=== PATIENT | female | born 1950 | race Caucasian/White ===

== ENCOUNTER 2023-09-07 06:14 | Inpatient (IN) ==
--- NOTE | 2023-08-18 12:08 | PAT Medication Instructions ---
Medication Instructions Date of Service August 18, 2023 Home Medications bupropion HCl 150 mg tablet,12 hr sustained-release (Wellbutrin SR) 150 mg PO BID celecoxib 200 mg capsule (Celebrex) 200 mg PO BID montelukast 10 mg tablet 10 mg PO QAM omeprazole 40 mg capsule,delayed release 40 mg PO QAM triamterene 37.5 mg-hydrochlorothiazide 25 mg tablet 1 tab PO TID PRN vit C 250 mg-vit E 90 mg-zinc 40 mg-copper 1 [id number] capsule (PreserVision AREDS-2) 1 tab PO BID gabapentin 300 mg tablet 300 mg PO TID tramadol 50 mg tablet 50 mg PO BID PRN ASK your surgeon for instructions celecoxib 200 mg capsule (Celebrex) 200 mg PO BID STOP taking 2 weeks before surgery (or as soon as possible if surgery is within 2 weeks) vit C 250 mg-vit E 90 mg-zinc 40 mg-copper 1 [id number]-olhoyt capsule (PreserVision AREDS-2) 1 tab PO BID DO NOT take the morning of surgery triamterene 37.5 mg-hydrochlorothiazide 25 mg tablet 1 tab PO TID PRN Take morning of surgery With a small sip of water, OTHERWISE NOTHING TO EAT OR DRINK AFTER MIDNIGHT: bupropion HCl 150 mg tablet,12 hr sustained-release (Wellbutrin SR) 150 mg PO BID montelukast 10 mg tablet 10 mg PO QAM omeprazole 40 mg capsule,delayed release 40 mg PO QAM gabapentin 300 mg tablet 300 mg PO TID tramadol 50 mg tablet 50 mg PO BID PRN(if needed) Take evening before surgery bupropion HCl 150 mg tablet,12 hr sustained-release (Wellbutrin SR) 150 mg PO BID triamterene 37.5 mg-hydrochlorothiazide 25 mg tablet 1 tab PO TID PRN(if needed) gabapentin 300 mg tablet 300 mg PO TID tramadol 50 mg tablet 50 mg PO BID PRN(if needed) Other Notes If you have any questions please call us at [phone] or [phone] or [phone] or [phone]
--- NOTE | 2023-08-24 13:17 | Anesthesiology Consultation ---
Date of Service August 24, 2023 Assessment & Plan (1) Encounter for pre-operative examination: - Infectious disease screening: Per assessment on 08/24/23: No known infectious disease contacts or current infectious disease symptoms. No noted recent Covid positive test result. - PCP ordered preop Echo which was done 08/23/23 (unremarkable). Patient acceptable risk for surgery pending surgeon-ordered PCP clearance ([facility] PAC/JACQUELINE Martell). Chart Review Chart Review: Patient seen in Pre Admission Testing Teaching & Discussion Pre-Anesthesia Teaching/Discussion Notes: Instructed NPO after midnight before surgery,except medications with 15 cc of water. Medication instructions provided according to the PAT guidelines. History Surgery Operation Date: 09/07/23 07:45 Proposed Procedures p L3-L5 Decompression and Fusion, Spinal Cord Monitoring - Pedro Corado DO s L5 Kyphoplasty - Pedro Corado DO Height/Weight Height: 5 ft 1 in Weight: 89.3 kg Allergies Allergy/AdvReac Type Severity Reaction Status Date / Time No Known Allergies Allergy Unverified 08/17/23 09:01 Medications Home Medications Medication Instructions Recorded Confirmed Last Taken bupropion HCl 150 mg tablet,12 hr 150 mg PO BID 03/17/23 08/17/23 03/17/23 sustained-release (Wellbutrin SR) celecoxib 200 mg capsule (Celebrex) 200 mg PO BID 03/17/23 08/17/23 03/17/23 montelukast 10 mg tablet 10 mg PO QAM 03/17/23 08/17/23 03/17/23 omeprazole 40 mg capsule,delayed 40 mg PO QAM 03/17/23 08/17/23 03/17/23 release triamterene 37.5 1 tab PO TID PRN Edema 03/17/23 08/17/23 Unknown mg-hydrochlorothiazide 25 mg tablet vit C 250 mg-vit E 90 mg-zinc 40 1 tab PO BID 03/17/23 08/17/23 03/17/23 mg-copper 1 [id number] capsule (PreserVision AREDS-2) gabapentin 300 mg tablet 300 mg PO TID 08/17/23 08/17/23 Unknown tramadol 50 mg tablet 50 mg PO BID PRN Pain 08/17/23 08/17/23 Unknown Past Medical History Medical History Chronic obstructive pulmonary disease Depression Lumbar compression fracture Lumbar spondylosis Osteoarthritis Prolapsed uterus Spinal stenosis, lumbar region with neurogenic claudication Spondylolisthesis Urine, incontinence, stress female Exercise / Class Metabolic Activity III < 4 Walking/Shop/Light housework Past Surgical History Surgical History History of carpal tunnel release bilateral History of cataract surgery bilateral History of tubal ligation Nausea and vomiting after administration of anesthetic agent Remote hx years ago after tubal ligation, no issues since Past Anesthesia History No Hx of Anesthesia Complications and No Family Hx of Anesthesia Complications History of PONV No Hx of Motion Sickness and History of PONV (Remote hx years ago after tubal ligation, no issues since) Social History Smoking Status: Former smoker Do You Dip or Chew Tobacco: No Smoking End Date: Quit 2019 Hx Alcohol Use: No Hx Substance Use: No substance use type: does not use Review of Systems Patient denies chest pain, shortness of breath, fever, chills, cough, wheezing, palpitations. Physical Exam Vital Signs BP 124/77 P 89 TEMP 98.2 SP02 96%RA RESP 16 Physical Full cervical extension range of motion. Full TMJ range of motion. TMD 3 finger breaths Mallampati Score 3 Dentition: upper partial, lower full denture Lungs: clear throughout to auscultation Cardiac: regular rate and rhythm, no murmurs noted Spine: normal Carotid arteries: negative bruit Extremities: no LE edema Lab Results Anesthesia Preop Results Results Anesthesia Widget: PT 10.1 Seconds (9.0-12.0) 08/24/23 PTT 27 Seconds (21-31) 08/24/23 INR 0.9 (0.9-1.1) 08/24/23 Urine Color Yellow 08/24/23 Urine Appearance Clear (Clear) 08/24/23 Urine pH 5.5 (4.5-7.5) 08/24/23 Urine Specific [place] 1.030 (1.000-1.030) 08/24/23 Urine Protein Negative (Negative) 08/24/23 Urine Glucose (UA) Negative (Negative) 08/24/23 Urine Ketones Negative (Negative) 08/24/23 Urine Blood Negative (Negative) 08/24/23 Urine Nitrite Negative (Negative) 08/24/23 Urine Bilirubin Negative (Negative) 08/24/23 Urine Urobilinogen Negative (Negative) 08/24/23 Urine Leukocyte Esterase 1+ (Negative) H 08/24/23 Urine WBC (Auto) 5-10 /hpf (0-5) H 08/24/23 Urine RBC (Auto) 0-4 /hpf (0-4) 08/24/23 Urine Hyaline Casts (Auto) 1-5 /lpf (0-5) 08/24/23 Urine Epithelial Cells (Auto) >30 /lpf (0-5) H 08/24/23 Urine Bacteria (Auto) Negative (Negative) 08/24/23 Blood Type A Positive 08/24/23 Antibody Screen NEGATIVE 08/24/23 Testing Laboratory Results 08/19/23 WBC 5.84 H/H 13.2/44.4 PLATELETS 292 SODIUM 141 POTASSIUM 4.5 CHLORIDE 104 CO2 30.1 BUN 22.0 CREATININE 1.03 GLUCOSE 107 HGBA1C 5.6% Electrocardiogram Date: 03/17/23 Findings: + NSR @ (84) Chest X-Ray Date: 08/24/23 Findings: + NAD Echocardiogram Date: 08/23/23 EF 60-65%. No RWMA. Mild TR/UT. Trivial pericardial effusion.
[2023-09-07] MEDS ORDERED: PROMETHAZINE HCL 6.25 MG in SODIUM CHLORIDE 0.9% 50 ML IV PRN (07:02)
[2023-09-07] MEDS ORDERED: ATROPINE SULFATE 0.1 MG/ML 10ML SYR IV PRN (07:02)
[2023-09-07] MEDS ORDERED: DEXAMETHASONE SOD INJ 4 MG/ML VIAL ONE (07:06)
[2023-09-07] MEDS ORDERED: ROCURONIUM BROMIDE 10 MG/ML 5 ML VIAL IV ONE (07:06)
[2023-09-07] MEDS ORDERED: ONDANSETRON INJ 2 MG/ML 2 ML VIAL ONE (07:06)
[2023-09-07] MEDS ORDERED: fentaNYL citrate PF 100 MCG/2 ML VIAL ONE (07:06)
[2023-09-07] MEDS ORDERED: MIDAZOLAM HCL 1 MG/ML 2ML VIAL ONE (07:06)
[2023-09-07] MEDS ORDERED: PROPOFOL IV EMULSION 10 MG/ML 20 ML VIAL IV ONE (07:06)
[2023-09-07] MEDS: GABAPENTIN 300 MG CAP PO SCH ×2 (07:22→12:24)
[2023-09-07] MEDS: ACETAMINOPHEN 500 MG TAB PO SCH (07:23)
[2023-09-07] MEDS: LR 15ML/HR IV SCH (07:23)
[2023-09-07] MEDS: CeleBREX 200 MG CAP PO SCH (07:23)
[2023-09-07] MEDS: LR 60ML/HR IV SCH (07:23)
--- NOTE | 2023-09-07 07:34 | History & Physical Bridge Note ---
Date of Service September 07, 2023 History & Physical Bridge Note I have examined the patient, reviewed the History & Physical and in the interval since the performance of the History & Physical I have noted the following changes of clinical significance: no changes noted
--- NOTE | 2023-09-07 07:35 | History & Physical Report ---
Date of Service September 07, 2023 Assessment & Plan (1) Neurogenic claudication due to lumbar spinal stenosis: Plan: L3-L5 decompression and fusion with L5 kyphoplasty History of Present Illness Chief Complaint: Back and leg pain Primary Care Provider: Ani Can PA-C This is a 72-year-old female who presents with worsening back and leg pain Course of nonoperative care she is here for surgical invention. Allergies Allergy/AdvReac Type Severity Reaction Status Date / Time No Known Allergies Allergy Verified 09/07/23 06:51 Home Medications Medication Instructions Recorded Confirmed Type bupropion HCl 150 mg tablet,12 hr 150 mg PO BID 03/17/23 09/07/23 History sustained-release (Wellbutrin SR) celecoxib 200 mg capsule (Celebrex) 200 mg PO BID 03/17/23 09/07/23 History montelukast 10 mg tablet 10 mg PO QAM 03/17/23 09/07/23 History omeprazole 40 mg capsule,delayed 40 mg PO QAM 03/17/23 09/07/23 History release triamterene 37.5 1 tab PO TID PRN Edema 03/17/23 09/07/23 History mg-hydrochlorothiazide 25 mg tablet vit C 250 mg-vit E 90 mg-zinc 40 1 tab PO BID 03/17/23 09/07/23 History mg-copper 1 ew-bqnjjt-bdvhxk capsule (PreserVision AREDS-2) gabapentin 300 mg tablet 300 mg PO TID 08/17/23 09/07/23 History tramadol 50 mg tablet 50 mg PO BID PRN Pain 08/17/23 09/07/23 History Vitamin D3 5,000 tab PO BID 09/07/23 09/07/23 History Past Med/Surg History Medical History Chronic obstructive pulmonary disease Depression Lumbar compression fracture Lumbar spondylosis Osteoarthritis Prolapsed uterus Spinal stenosis, lumbar region with neurogenic claudication Spondylolisthesis Urine, incontinence, stress female Surgical History History of carpal tunnel release bilateral History of cataract surgery bilateral History of tubal ligation Nausea and vomiting after administration of anesthetic agent Remote hx years ago after tubal ligation, no issues since Social History Smoking Status: Former smoker Tobacco Type: Cigarettes Smoking End Date: Quit 2019; Second Hand Exposure: Yes (current); Do You Dip or Chew Tobacco: No; Tobacco Cessation Education Requested by Patient: No Hx Alcohol Use: No Hx Substance Use: No Preferred Language: Khmer Visual Impairment: Limited Clinical Medical Transcriptionist Required: No Beliefs That Will Affect Care: None Current Living Situation: Family Current Living Situation Comment: lives with grandson current occupational status: retired Other Information That Helps Us Care for You: No Feels Safe at Home: Yes Safety Concerns: Feels Safe At This Time Assistive Devices: Denture - Upper, Denture - Lower, Glasses, Walker and Wheelchair Physical Exam Physical Exam: Patient is alert and oriented Heart regular in rhythm Lungs clear
[2023-09-07] MEDS ORDERED: SCOPOLAMINE 1 MG TDSY TD ONE (07:39)
[2023-09-07] MEDS ORDERED: LIDOCAINE 2% 2 ML VIAL/AMP(20MG/ML) INFIL ONE (08:31)
[2023-09-07] MEDS ORDERED: ePHEDrine sulfate 50 MG/5 ML SYR ONE (08:31)
[2023-09-07] MEDS: ceFAZolin 2000MG 2,000 MG/15 ML SYR IV SCH ×2 (08:44→16:59)
[2023-09-07] MEDS: BUPIVACAINE/EPINEPHRINE 0.5% MPF 1:200,000 30 ML VIAL ONE (08:45)
[2023-09-07] MEDS: ceFAZolin 330 MG/ML 1 GM VIAL ONE (08:45)
[2023-09-07] MEDS: FLOSEAL HEMOSTATIC MATRIX 10ML TOP ONE (09:36)
[2023-09-07] MEDS ORDERED: SUGAMMADEX SODIUM 200 MG/2 ML VIAL IV ONE (09:40)
--- NOTE | 2023-09-07 09:56 | Fluoroscopy Report ---
FL lumbar spine 2-3V CLINICAL HISTORY: L3-L5 DECOMPRESSION AND FUSION TECHNIQUE: 2 views were obtained with the C-arm in the OR with the above procedure. Total fluoroscopy time was 134.7 seconds. Radiation dose was 26 mGy. Comparison: Comparison is made to MRI lumbar spine 08/23/2023 FINDINGS/IMPRESSION: Intraoperative images were obtained of L3-L5 decompression and fusion and L3 and L5 kyphoplasty. Please correlate with intraoperative fluoroscopy and operative report. ACT 112: Negative or not required by law. Electronically signed by: Lang Villegas M.D. 09/07/2023 9:55 AM
[2023-09-07] MEDS ORDERED: ALBUTEROL HFA 8 GM INHALER INH ONE (10:00)
--- NOTE | 2023-09-07 10:07 | Operative Report ---
Post Operative Report Pre & Post Diagnosis Operation Date: 09/07/23 07:45 Pre-Op Diagnosis: Spinal Stenosis of Lumbar Region with Neurogenic Claudication Spondylolisthesis L4-L5 Acute compression fracture L3 Post-Op Diagnosis: Same I identified the patient and participated in the time-out.: Yes Procedure Operation Date: 09/07/23 07:45 Actual Procedures #1 lumbar decompression bilateral medial facetectomies and foraminotomies L2-L3, L3-L4 and L4-5 per #2 posterior spinal fusion L3-L5. #3 placed posterior instrumentation L3-L5 #4 interbody fusion L4-L5 #5 placement spiral 12 x 26 mm at L4-5. #6 kyphoplasty of L3 and L5 vertebral bodies. #7 placement of locally harvested morselized autograft and posterior gutters. #8 placement of infuse collagen sponge combined with Koros bone graft in the posterior gutters and course bone graft in the interbody space. Surgeon Pedro Corado, DO Game Bird Farmer None Estimated Blood Loss 50 Findings Consistent with Post-Op Diagnosis Specimens None Indications This is a 72-year-old female presents problems diagnosis) course of nonoperative care is here for surgical invention. Description of Procedure Patient was met with identified informed consent obtained. Patient was then taken to the operative suite underwent patient placed in prone position the [place] table top [place] frame. The bony promises well-padded eyes inspected to ensure no external precipice monitor at this point lumbar spine was prepped and draped in a sterile fashion. Sharp dissection with the assistance bradycardia form down to and exposing the lamina transverse processes of L3 L4-5 bilaterally. From caudal cephalad fashion complete laminectomy of L4 L3 and partial and active L2 was performed including bilaterally facetectomies and foraminotomies addressing severe spinal stenosis. I then created holes in the pedicles of L3 and L5 bilaterally in preparation for pedicle screw placement. Prior to doing so however I placed Kyphon 20 m balloon starting at L3 into the vertebral body sequentially inflated with fluoroscopic visualization. They were subsequently removed and approximately 4 cc of Kyphon cement used and digitate and fill the vertebral body to additionally stabilize the compression fracture. This was followed by placement of pedicle screws and L3. I repeated the procedure at L5 injecting approximately 3 cc of Kyphon cement to interdigitate in the broken fragments followed by placement of the pedicle screws. Pedicle screws were also placed in L4 appropriate size rhina was then contoured and placed bilaterally. By way of transforaminal approach on the left complete discectomy of L4-5 was performed endplates guarded to subcortical mean bone and a 12 x 26 mm spiral cage filled with Koros bone graft apposition. Rods were then compressed locked in final position bilaterally. The transverse processes of L3 L4-5 burred to subcortical bleeding bone. Infuse collagen sponge combined with Koros bone graft and locally harvested morselized graft placed in the posterior gutters. 15 round JUAN inserted. The incision was then closed with 1 Vicryl and fascia 2-0 Vicryl subcutaneously and 4 Monocryl for final closure. Steri-Strips sterile dressings placed. Patient was then taken to PACU in stable condition. Please note spinal cord monitoring was utilized at the procedure no changes noted. I attest to the content of the Intraoperative Record and any orders documented therein. Any exceptions are noted below.
[2023-09-07] MEDS: HYDROmorphone INJ 1 MG/ML SYRINGE IV PRN (10:22)
--- NOTE | 2023-09-07 10:53 | Anesthesiology Progress Note ---
Date of Service September 07, 2023 Anesthesia Post Procedure Vital Signs Vital Signs: Temp Pulse Resp BP Pulse Ox O2 Del Method O2 Flow Rate 09/07/23 10:45 36.4 C L 74 17 145/62 H 95 Room Air 09/07/23 10:35 70 17 128/57 L 100 Oxymask 5 09/07/23 10:25 71 14 126/82 100 Oxymask 5 09/07/23 10:15 70 16 124/76 100 Oxymask 5 09/07/23 10:06 36.3 C L 70 16 138/61 99 Oxymask 5 Transfer of Care Handoff Completed per policy Notes Mental Status: alert / awake / arousable Patient Amnestic to Procedure: Yes Nausea / Vomiting: adequately controlled Pain: adequately controlled Airway Patency, RR, SpO2: stable & adequate BP & HR: stable & adequate Hydration State: stable & adequate Anesthetic Complications: no major complications apparent
[2023-09-07] MEDS ORDERED: diphenhydrAMINE Capsule 25 MG CAP PO PRN (11:13)
[2023-09-07] MEDS ORDERED: LORazepam 0.5 MG in SYRINGE 0.25 ML IV PRN (11:13)
[2023-09-07] MEDS ORDERED: NALOXONE HCL 0.4 MG/1 ML VIAL/CARP IV PRN (11:13)
[2023-09-07] MEDS ORDERED: MAGNESIUM HYDROXIDE SUSP 30 ML UDC PO PRN (11:13)
[2023-09-07] MEDS ORDERED: FAMOTIDINE 20 MG TAB PO PRN (11:13)
[2023-09-07] MEDS ORDERED: DO NOT ADMINISTER FLU VACCINE PRN (11:13)
[2023-09-07] MEDS ORDERED: LORazepam 0.5 MG TAB PO PRN (11:13)
[2023-09-07] MEDS ORDERED: METOCLOPRAMIDE HCL INJ 5 MG/ML 2 ML VIAL IV PRN (11:13)
[2023-09-07] MEDS ORDERED: TRIAMTERENE/HCTZ 37.5/25MG TAB PO PRN (11:13)
[2023-09-07] MEDS ORDERED: HYDROmorphone INJ 0.5 MG/0.5 ML SYR IV PRN (11:13)
[2023-09-07] MEDS ORDERED: bisacodyL 10 MG SUPP PR PRN (11:13)
[2023-09-07] MEDS ORDERED: ACETAMINOPHEN 1,000 MG/100 ML VIAL IV PRN (11:13)
[2023-09-07] MEDS ORDERED: DO NOT ADMINISTER PNEUMOCOCCAL VACCINE PRN (11:13)
[2023-09-07] MEDS ORDERED: PROMETHAZINE HCL 12.5 MG in SODIUM CHLORIDE 0.9% 50 ML IV PRN (11:13)
[2023-09-07] MEDS ORDERED: hydrOXYzine HCl 25 MG TAB PO PRN (11:13)
[2023-09-07] MEDS ORDERED: SOD PHOSPHATE/SOD BIPHOSPHATE ENEMA 132 ML BTL PR PRN (11:13)
[2023-09-07] MEDS ORDERED: ALUMINUM/MAGNESIUM SUSP 30 ML UDC PO PRN (11:13)
[2023-09-07] MEDS ORDERED: ONDANSETRON INJ 2 MG/ML 2 ML VIAL IV PRN (11:13)
[2023-09-07] MEDS: LACTATED RINGER'S 1,000 ML IV SCH (11:20)
--- NOTE | 2023-09-07 12:57 | Consultation ---
Date of Consultation September 07, 2023 Assessment & Plan (1) Neurogenic claudication due to lumbar spinal stenosis: (2) Chronic obstructive pulmonary disease: Plan This is a 72 yr old F who has a significant PMH of COPD, depression and chronic back pain who presents to elective lumbar procedure by Dr. Corado. S/P Lumbar decompression and fusion L3-L5 by Dr. Corado EBL 50ml tolerated procedure well pain/wound management per ortho activity and therapy as prescribed by ortho encourage incentive spirometry and wean off O2 as able COPD no acute exac prn albuterol Depression mood stable, chronic continue Wellbutrin Hx of T2DM most recent a1c 5.5 previously a1c 6.9, required meds and lost 50lbs in setting of surgery and steroid will monitor accuchecks with liberal novolog scale DVT ppx: SCDS FULL CODE PCP: Ani Can PA-C Dispo: per per primary Pt was seen and examined in collaboration with Dr. Phan, please see addendum A total of 45 minutes was spent coordinating, documenting, and providing care for this patient excluding time spent in the performance of separately billed services. This included personally viewing all current laboratories and imaging studies, medication reconciliation, outpatient chart review, and discussion with specialists. Thank you for this consultation. We will follow the patient with you during their hospital stay. You can reach a member of the [facility] Hospitalist Team 24/01 via hospitalist role on tiger text. Supervising Physician Co-Signing Physician Notes I have seen and discussed the case with the collaborating advanced practitioner. I agree with the above H&P. I have reviewed and confirmed the patients medical history, the findings on physical examination, and the patients diagnosis and treatment plan with Marc LEDESMA and agree with the information documented. In short, Ms. Gongora is a a72 year old woman with past medical history of COPD, diet controlled diabetes, depression, and neurogenic claudication now POD 0 lumbar fusion for which Hospital service consulted for medical comanagement. #Neurogenic claudication s/p lumbar fusion 09/07/2023 -POD 0 Pain mgmt per primary Bowel regimen Trend labs, monitor post op hgb and cr IS Rest of plan as above I spent a total of 15 minutes coordinating, documenting, and providing care for this patient excluding time spent in the performance of separately billed services. All of the aforementioned completed outside of collaborating with the assigned advanced practitioner for a full treatment plan. I have reviewed the advanced practitioner's documentation, and I agree with, and take responsibility for the plan of care History of Present Illness Requesting Physician: Dr. Corado Reason for Consultation: post op med management Attending Physician: Pedro Corado, DO History of Present Illness This is a 72 yr old F who has a significant PMH of COPD, depression and chronic back pain who presents to elective lumbar procedure by Dr. Corado. Her PCP Is Ani Can with [facility]. She underwent L3-L5 decompression/fusion by Dr. Corado. She tolerated the procedure well. She is complaining of low back pain with radiation to her b/l lower extremities. This is how her pain was prior to surgery. She does feel a little nausea, but does not want an antiemetic. She denies f/c/s, chest pain, sob, uri sx, vomiting, dizziness, lightheaded, abd pain. She has a silva cath in place. Records were reviewed. Appetite is stable. She has prior hx of T2DM. Her A1c was 6.9. She lost 50lbs and has since put back on 25 lbs due to immobility 2/2 back pain. Her most recent a1c was 5.5. She did take 1 medication for T2DM for 2 months but has since stopped. Allergies Allergy/AdvReac Type Severity Reaction Status Date / Time No Known Allergies Allergy Verified 09/07/23 06:51 Home Medications Medication Instructions Recorded Confirmed Type bupropion HCl 150 mg tablet,12 hr 150 mg PO BID 03/17/23 09/07/23 History sustained-release (Wellbutrin SR) celecoxib 200 mg capsule (Celebrex) 200 mg PO BID 03/17/23 09/07/23 History montelukast 10 mg tablet 10 mg PO QAM 03/17/23 09/07/23 History omeprazole 40 mg capsule,delayed 40 mg PO QAM 03/17/23 09/07/23 History release vit C 250 mg-vit E 90 mg-zinc 40 1 tab PO BID 03/17/23 09/07/23 History mg-copper 1 [id number]-[id number] capsule (PreserVision AREDS-2) gabapentin 300 mg tablet 300 mg PO TID 08/17/23 09/07/23 History tramadol 50 mg tablet 50 mg PO BID PRN Pain 08/17/23 09/07/23 History Vitamin D3 5,000 tab PO BID 09/07/23 09/07/23 History oxycodone 5 mg tablet 5 mg PO Q6H PRN pain #30 tabs 09/07/23 Rx tramadol 50 mg tablet 50 mg PO Q6H PRN pain, moderate 09/07/23 Rx #30 tabs Patient History Medical History (Updated 09/07/23 @ 13:00 by Marcella Tran PA-C) Osteoarthritis Urine, incontinence, stress female Prolapsed uterus Depression Chronic obstructive pulmonary disease Lumbar compression fracture Lumbar spondylosis Spondylolisthesis Spinal stenosis, lumbar region with neurogenic claudication Surgical History Nausea and vomiting after administration of anesthetic agent Remote hx years ago after tubal ligation, no issues since History of carpal tunnel release bilateral History of tubal ligation History of cataract surgery bilateral Social History Smoking Status: Former smoker Tobacco Type: Cigarettes Smoking End Date: Quit 2019; Second Hand Exposure: Yes (current); Do You Dip or Chew Tobacco: No; Tobacco Cessation Education Requested by Patient: No Hx Alcohol Use: No Hx Substance Use: No Preferred Language: Arabic Visual Impairment: Limited Medical Lab Technician Required: No Beliefs That Will Affect Care: None Current Living Situation: Family Current Living Situation Comment: lives with grandson current occupational status: retired Other Information That Helps Us Care for You: No Feels Safe at Home: Yes Safety Concerns: Feels Safe At This Time Assistive Devices: Denture - Upper, Denture - Lower, Glasses, Walker and Wheelchair Review of Systems Review of Systems: All systems reviewed & are unremarkable except as noted in HPI & below Physical Exam Physical Exam: please refer to Dr. Phan addendum for physical addendum Results & Data Vital Signs (Past 12 Hours) Vital Signs Temp Pulse Pulse Resp BP Pulse Ox O2 Del Method 09/07/23 12:08 80 16 114/59 L 95 Nasal Cannula 09/07/23 11:43 77 16 129/70 98 Nasal Cannula 09/07/23 11:17 Nasal Cannula 09/07/23 11:14 36.5 C 75 18 149/72 H 96 Nasal Cannula 09/07/23 10:45 36.4 C L 74 17 145/62 H 95 Room Air 09/07/23 10:35 70 17 128/57 L 100 Oxymask 09/07/23 10:25 71 14 126/82 100 Oxymask 09/07/23 10:15 70 16 124/76 100 Oxymask 09/07/23 10:06 36.3 C L 70 16 138/61 99 Oxymask O2 Flow Rate 09/07/23 12:08 2 09/07/23 11:43 2 09/07/23 11:17 2 09/07/23 11:14 2 09/07/23 10:45 09/07/23 10:35 5 09/07/23 10:25 5 09/07/23 10:15 5 09/07/23 10:06 5 Laboratory Results Preop labs done 03/17/2023 revealed a CBC that is completely unremarkable and completely unremarkable BMP. She had a urinalysis done that was negative as well. Diagnostic Findings Lumbar Spine X-Ray 09/07/23 07:45 FL lumbar spine 2-3V CLINICAL HISTORY: L3-L5 DECOMPRESSION AND FUSION TECHNIQUE: 2 views were obtained with the C-arm in the OR with the above procedure. Total fluoroscopy time was 134.7 seconds. Radiation dose was 26 mGy. Comparison: Comparison is made to MRI lumbar spine 08/23/2023 FINDINGS/IMPRESSION: Intraoperative images were obtained of L3-L5 decompression and fusion and L3 and L5 kyphoplasty. Please correlate with intraoperative fluoroscopy and operative report. ACT 112: Negative or not required by law. Electronically signed by: Lang Villegas M.D. 09/07/2023 9:55 AM Medications Administered Current Inpatient Medications Acetaminophen (Acetaminophen 500 Mg Tab) 1,000 mg PO PREOP ADAM Stop: 09/07/23 18:00 Last Admin: 09/07/23 07:23 Dose: 1,000 mg Acetaminophen (Acetaminophen 500 Mg Tab) 1,000 mg PO Q8H PRN PRN Reason: MILD Pain Scale 1,2,3 & Pre PT Stop: 10/07/23 11:12 Al Hydrox/Mg Hydrox/Simethicone (Aluminum/Magnesium Susp 30 Ml Udc) 30 ml PO Q6H PRN PRN Reason: Dyspepsia Stop: 10/07/23 11:12 Bisacodyl (Bisacodyl 10 Mg Supp) 10 mg MA DAILY PRN PRN Reason: Constipation Stop: 10/07/23 11:12 Bupropion HCl (Bupropion Sr 150 Mg Tabcr) 150 mg PO BID ADAM Stop: 10/07/23 20:59 Celecoxib (Celebrex 200 Mg Cap) 200 mg PO PREOP ADAM Stop: 09/07/23 18:00 Last Admin: 09/07/23 07:26 Dose: Not Given Diphenhydramine HCl (Diphenhydramine Capsule 25 Mg Cap) 25 mg PO Q6H PRN PRN Reason: Allergic Rhinitis/Insomnia Stop: 10/07/23 11:12 Famotidine (Famotidine 20 Mg Tab) 20 mg PO Q12H PRN PRN Reason: Dyspepsia Stop: 10/07/23 11:12 Gabapentin (Gabapentin 300 Mg Cap) 300 mg PO PREOP ADAM Stop: 09/07/23 18:00 Last Admin: 09/07/23 07:22 Dose: 300 mg Gabapentin (Gabapentin 300 Mg Cap) 300 mg PO TID ADAM Stop: 10/07/23 13:59 Last Admin: 09/07/23 12:24 Dose: 300 mg Hydromorphone HCl (Hydromorphone Inj 0.5 Mg/0.5 Ml Syr) 0.5 mg IV Q3H PRN PRN Reason: MODERATE Pain (Scale 4,5,6) & Pre PT Stop: 09/21/23 11:12 Hydromorphone HCl (Hydromorphone Inj 1 Mg/Ml Syringe) 1 mg IV Q3H PRN PRN Reason: SEVERE Pain (Scale 7,8,9,10) Stop: 09/21/23 11:12 Hydroxyzine HCl (Hydroxyzine Hcl 25 Mg Tab) 25 mg PO Q8H PRN PRN Reason: Anxiety Stop: 10/07/23 11:12 Lactated Ringer's (Lr) 1,000 mls @ 60 mls/hr IV .[id number] ADAM Stop: 09/07/23 22:39 Last Admin: 09/07/23 07:23 Dose: Not Given Cefazolin Sodium (Ancef 2000mg) 2,000 mg in 15 mls @ 3.75 mls/min IV PREOP ADAM; Protocol Stop: 09/07/23 18:00 Last Admin: 09/07/23 08:44 Dose: 3.75 mls/min Lactated Ringer's (Lr) 1,000 mls @ 15 mls/hr IV .Q24H ADAM Stop: 09/08/23 05:59 Last Infusion: 09/07/23 07:42 Dose: Infused Lactated Ringer's (Lr) 1,000 mls @ 100 mls/hr IV .Q10H ADAM Stop: 10/07/23 11:12 Last Admin: 09/07/23 11:20 Dose: 100 mls/hr Promethazine HCl 12.5 mg/ (Sodium Chloride) 50.5 mls @ 202 mls/hr IV Q6H PRN PRN Reason: Nausea &/or Vomiting Stop: 10/07/23 11:12 Acetaminophen (Ofirmev) 1,000 mg in 100 mls @ 400 mls/hr IV Q8H PRN PRN Reason: Pain Rating 1-3 & Pre PT Stop: 09/08/23 11:14 Cefazolin Sodium (Ancef 2000mg) 2,000 mg in 15 mls @ 3.75 mls/min IV Q8H ADAM; Protocol Stop: 09/08/23 00:18 Lorazepam 0.5 mg/ Syringe 0.5 mls @ 2 mls/min IV Q8H PRN; Protocol PRN Reason: Sedation/Anxiety Stop: 10/07/23 11:12 Dexamethasone 6 mg/ Syringe 1.5 mls @ 1 mls/min IV DAILY [facility] Stop: 09/10/23 09:02 Influenza Virus Vaccine Quadrival (Do Not Administer Flu Vaccine) 1 each N/A PRN PRN PRN Reason: Notification Stop: 10/07/23 11:12 Lorazepam (Lorazepam 0.5 Mg Tab) 0.5 mg PO Q8H PRN PRN Reason: Sedation/Anxiety Stop: 10/07/23 11:12 Magnesium Hydroxide (Magnesium Hydroxide Susp 30 Ml Udc) 30 ml PO Q24H PRN PRN Reason: Constipation Stop: 10/07/23 11:12 Metoclopramide HCl (Metoclopramide Hcl Inj 5 Mg/Ml 2 Ml Vial) 10 mg IV Q6H PRN PRN Reason: Nausea &/or Vomiting Stop: 10/07/23 11:12 Montelukast Sodium (Montelukast Sodium 10 Mg Tablet) 10 mg PO QAM [facility] Stop: 10/08/23 08:59 Multivitamins/Minerals (Cerovite Adv Formula Tab) 1 tab PO DAILY [facility] Stop: 10/08/23 08:59 Naloxone HCl (Naloxone Hcl 0.4 Mg/1 Ml Vial/Carp) 0.1 mg IV Q5M PRN PRN Reason: Oversedation/Resp depression Stop: 10/07/23 11:12 Ondansetron HCl (Ondansetron Inj 2 Mg/Ml 2 Ml Vial) 4 mg IV Q6H PRN PRN Reason: Nausea &/or Vomiting Stop: 10/07/23 11:12 Ondansetron HCl (Ondansetron 4 Mg Od Tab) 4 mg PO Q6H PRN PRN Reason: Nausea Stop: 10/07/23 11:12 Oxycodone HCl (Oxycodone Hcl Ir 5 Mg Tab (Immediate Release)) 5 - 10 mg PO Q4H PRN PRN Reason: Pain & Pre PT Stop: 09/21/23 11:12 Pantoprazole Sodium (Pantoprazole 40 Mg Tab) 40 mg PO QAM [facility] Stop: 10/08/23 08:59 Pneumococcal Polyvalent Vaccine (Do Not Administer Pneumococcal Vaccine) 1 each N/A PRN PRN PRN Reason: Notification Stop: 10/07/23 11:12 Polyethylene Glycol (Polyethylene (Miralax) 17 Gm Pack) 17 gm PO Q6 [facility] Stop: 10/08/23 05:59 Senna/Docusate Sodium (Docusate Sodium/Senna 50/8.6mg Tab) 2 tab PO HS [facility] Stop: 10/07/23 20:59 Sodium Biphosphate/Sodium Phosphate (Sod Phosphate/Sod Biphosphate Enema 132 Ml Btl) 132 ml MA ONE PRN PRN Reason: Constipation Stop: 10/07/23 11:12 Tramadol HCl (Tramadol Hcl 50 Mg Tablet) 50 - 100 mg PO Q4H PRN PRN Reason: Moderate-Severe pain & Pre PT Stop: 10/07/23 11:12 Triamterene/Hydrochlorothiazide (Triamterene/Hctz 37.5/25mg Tab) 1 tab PO TID PRN PRN Reason: Edema Stop: 10/07/23 11:12 Vitamin D (Cholecalciferol 125 Mcg (5,000 Units) Tab) 125 mcg PO BID [facility] Stop: 10/07/23 20:59 ECG Additional Comments: EKG was visually reviewed and interpreted by myself. Revealed normal sinus rhythm with ventricular of [address] or T wave changes. T wave inversion noted in lead III.
[2023-09-07] MEDS ORDERED: DEXTROSE 50% 50 ML SYRINGE IV PRN (14:01)
[2023-09-07] MEDS ORDERED: GLUCAGON FOR INJ 1 MG VIAL SQ PRN (14:01)
[2023-09-07] MEDS ORDERED: GLUCOSE 40% GEL 15 GM TUBE PO PRN (14:01)
[2023-09-07] MEDS ORDERED: GLUCOSE 10 TAB/TUBE PO PRN (14:01)
[2023-09-07] MEDS ORDERED: CARBOHYDRATES FOR HYPOGLYCEMIA PO PRN (14:01)
[2023-09-07] MEDS: traMADol HCL 50 MG TABLET PO PRN (14:24)
[2023-09-07] MEDS: INSULIN ASPART PER UNIT CHARGE SC SCH (17:00)
[2023-09-07] MEDS: ACETAMINOPHEN 500 MG TAB PO PRN (18:14)
[2023-09-07] MEDS: DOCUSATE SODIUM/SENNA 50/8.6MG TAB PO SCH (21:40)
[2023-09-07] MEDS: oxyCODONE HCL IR 5 MG TAB (IMMEDIATE RELEASE) PO PRN (21:40)
[2023-09-07] MEDS: buPROPion SR 150 MG TABCR PO SCH (21:41)
[2023-09-07] MEDS: CHOLECALCIFEROL 125 MCG (5,000 UNITS) TAB PO SCH (21:45)
[2023-09-08] MEDS: POLYETHYLENE (MIRALAX) 17 GM PACK PO SCH (05:58)
[2023-09-08 07:38] LABS: Basophils # (auto) 0.02 K/uL (0.00-0.20); Basophils % (auto) 0.2 %; Eosinophils # (auto) 0.02 K/uL (0.00-0.50); Eosinophils % (auto) 0.2 %; Hematocrit (blood only) 33.9 % (37.0-47.0); Hemoglobin 10.5 g/dl (12.0-16.0); Immature Granulocytes # (auto) 0.07 K/uL (0.01-0.20); Immature Granulocytes % (auto) 0.6 %; Lymphocytes # (auto) 1.81 K/uL (1.20-3.40); Lymphocytes % (auto) 16.3 %; Mean Corpuscular Hemoglobin 29.7 pg (25.0-34.0); Mean Corpuscular Volume 95.8 fL (80.0-100.0); Mean Platelet Volume 9.4 fL (9.4-12.4); Monocytes # (auto) 1.05 K/uL (0.11-0.59); Monocytes % (auto) 9.5 %; Neutrophils # (auto) 8.13 K/uL (1.40-6.50); Neutrophils % (auto) 73.2 %; Platelet Count 229 K/uL (130-400); RDW Coefficient of Variation 13.2 % (11.5-14.5); RDW Standard Deviation 46.3 fL (36.4-46.3); Red Blood Count 3.54 M/uL (4.20-5.40)
[2023-09-08] MEDS: dexAMETHasone 6 MG in SYRINGE 0 ML IV SCH (07:58)
[2023-09-08] MEDS: PANTOprazole 40 MG TAB PO SCH (07:59)
[2023-09-08] MEDS: CEROVITE ADV FORMULA TAB PO SCH (07:59)
[2023-09-08] MEDS: MONTELUKAST SODIUM 10 MG TABLET PO SCH (07:59)
[2023-09-08 08:02] LABS: BUN Creatinine Ratio 22.6 (10-20); Calcium 8.9 mg/dl (8.6-10.3); Creatinine Clr Calc Pharmacy 49.5 ml/min; Est GFR (African American) 71.7 ml/min; Est GFR (Non-African American) 61.8 ml/min; Potassium 4.3 mmol/L (3.5-5.1)
--- NOTE | 2023-09-08 08:27 | Orthopedic Progress Note ---
Date of Service September 08, 2023 Assessment & Plan (1) Neurogenic claudication due to lumbar spinal stenosis: Plan: At this time continue physical therapy monitor JUAN output and anticipate discharge in the next few days. We will await final placement pending her pr ogress with PT and OT. Admission and Anticipated Discharge Date Admission Date: September 07, 2023 Subjective Back pain is controlled leg pain improved Physical Exam Physical Exam: Patient is currently in bed. She is comfortable. Is consented testing. Results & Data Vital Signs (Past 12 Hours) Vital Signs Temp Pulse Resp BP Pulse Ox O2 Del Method 09/08/23 07:02 36.5 C 74 16 127/63 96 Room Air 09/08/23 02:35 36.9 C 80 16 128/72 94 Room Air 09/07/23 22:52 36.8 C 82 16 96/58 L 94 Room Air Queries Orthopedic Spine Cauda Equina Syndrome: Yes
[2023-09-08 08:46] LABS: Estimated Average Glucose 117 mg/dl; Hemoglobin A1C 5.7 % (4.5-5.6)
--- NOTE | 2023-09-08 14:53 | Hospitalist Progress Note ---
Date of Service September 08, 2023 Assessment & Plan (1) Neurogenic claudication due to lumbar spinal stenosis: (2) Chronic obstructive pulmonary disease: Plan This is a 72 yr old F who has a significant PMH of COPD, depression and chronic back pain who presents to elective lumbar procedure by Dr. Corado. S/P Lumbar decompression and fusion L3-L5 by Dr. Corado 09/07/23. EBL 50ml tolerated procedure well pain/wound management per ortho activity and therapy as prescribed by ortho encourage incentive spirometry and wean off O2 as able Acute blood loss anemia: likely post operative and dilutional related anemia. Preop Hb 12.9; post op 10.5; monitor HnH. currently pt stable. labs in AM. COPD no acute exac prn albuterol Depression mood stable, chronic continue Wellbutrin Hx of T2DM most recent a1c 5.5 previously a1c 6.9, required meds and lost 50lbs in setting of surgery and steroid will monitor accuchecks with liberal novolog scale DVT ppx: SCDS FULL CODE PCP: Ani Can PA-C Dispo: per per primary Thank you for this consultation. We will follow the patient with you during their hospital stay. You can reach a member of the [facility] Hospitalist Team 24/01 via hospitalist role on tiger text. Admission and Anticipated Discharge Date Admission Date: September 07, 2023 Subjective Patient was seen and examined at bedside. Patient was sitting up in chair, on room air, resting comfortably. Patient reports improvement in her low back pain, she is yet to appreciate improvement in her BLE extremity. Patient denies any febrile illness/headache/dizziness/chest pain. Physical Exam Physical Exam: GENERAL: Alert and oriented x3. NAD, on RA. HEENT: No pallor, no icterus. Pupils equal, round and reactive to light. Oral mucosa moist. NECK: No JVD, no neck masses. HEART: S1 and S2 heard. Regular rate and rhythm. No murmur, no gallop. RESPIRATORY SYSTEM: Normal AP diameter. No accessory muscle use. No wheezing, no crackles. ABDOMEN: Soft, bowel sounds present, nontender, no distention. CENTRAL NERVOUS SYSTEM: No facial droop. Speech is clear. Obeys simple commands. Moves extremities. EXTREMITIES: No edema, no erythema seen. Lower back with clean dressing without soakage. JUAN drain with moderate serosanguineous collection noted. Urinary catheter with light yellow urine collection noted. Results & Data Results & Data Vital Signs (Past 12 Hours) Vital Signs Temp Pulse Resp BP Pulse Ox O2 Del Method 09/08/23 14:31 36.6 C 104 H 16 129/66 95 Room Air 09/08/23 11:14 36.6 C 96 H 16 112/67 94 Room Air 09/08/23 07:02 36.5 C 74 16 127/63 96 Room Air
[2023-09-09 07:56] LABS: Hematocrit (blood only) 34.6 % (37.0-47.0); Hemoglobin 10.7 g/dl (12.0-16.0); Mean Corpuscular Hemoglobin 30.1 pg (25.0-34.0); Mean Corpuscular Hgb Conc 30.9 g/dL (32.0-36.0); Mean Corpuscular Volume 97.5 fL (80.0-100.0); Mean Platelet Volume 9.9 fL (9.4-12.4); Platelet Count 248 K/uL (130-400); RDW Coefficient of Variation 13.2 % (11.5-14.5); RDW Standard Deviation 47.8 fL (36.4-46.3); Red Blood Count 3.55 M/uL (4.20-5.40); White Blood Count 11.76 K/ul (4.8-10.8)
[2023-09-09 08:11] LABS: BUN Creatinine Ratio 25.3 (10-20); Creatinine Clr Calc Pharmacy 50.6 ml/min; Est GFR (African American) 73.6 ml/min; Est GFR (Non-African American) 63.5 ml/min; Magnesium 1.9 mg/dl (1.7-2.4); Phosphorus 3.2 mg/dl (2.5-4.9); Potassium 4.3 mmol/L (3.5-5.1)
--- NOTE | 2023-09-09 10:22 | Orthopedic Progress Note ---
Date of Service September 09, 2023 Assessment & Plan (1) Neurogenic claudication due to lumbar spinal stenosis: Plan: At this time continue physical therapy occupational therapy monitor JUAN output and can consider rehab versus home placement. Admission and Anticipated Discharge Date Admission Date: September 07, 2023 Subjective Back pain controlled leg pain improved Physical Exam Physical Exam: Pain in the chair at the bedside. She is comfortable. Discussed when to testing. She Results & Data Vital Signs (Past 12 Hours) Vital Signs Temp Pulse Resp BP Pulse Ox O2 Del Method 09/09/23 07:52 36.9 C 86 16 118/58 L 98 Room Air Queries Orthopedic Spine Cauda Equina Syndrome: Yes
--- NOTE | 2023-09-09 16:31 | Hospitalist Progress Note ---
Date of Service September 09, 2023 Assessment & Plan (1) Neurogenic claudication due to lumbar spinal stenosis: (2) Chronic obstructive pulmonary disease: Plan This is a 72 yr old F who has a significant PMH of COPD, depression and chronic back pain who presents to elective lumbar procedure by Dr. Corado. S/P Lumbar decompression and fusion L3-L5 by Dr. Corado 09/07/23. EBL 50ml tolerated procedure well pain/wound management per ortho activity and therapy as prescribed by ortho encourage incentive spirometry and wean off O2 as able Acute blood loss anemia: likely post operative and dilutional related anemia. Preop Hb 12.9; post op 10.5; monitor HnH prn. currently pt stable. l COPD no acute exac prn albuterol Depression mood stable, chronic continue Wellbutrin Hx of T2DM most recent a1c 5.5 previously a1c 6.9, required meds and lost 50lbs in setting of surgery and steroid will monitor accuchecks with liberal novolog scale DVT ppx: SCDS FULL CODE PCP: Ani Can PA-C Dispo: per per primary Thank you for this consultation. We will follow the patient with you during their hospital stay. You can reach a member of the [facility] Hospitalist Team 24/01 via hospitalist role on tiger text. Admission and Anticipated Discharge Date Admission Date: September 07, 2023 Subjective Patient was seen and examined at bedside. Patient was sitting up in chair, on room air, resting comfortably. Patient reports improvement in her low back pain, some improvement in her BLE extremity. Patient denies any febrile illness/headache/dizziness/chest pain. Physical Exam Physical Exam: GENERAL: Alert and oriented x3. NAD, on RA. HEENT: No pallor, no icterus. Pupils equal, round and reactive to light. Oral mucosa moist. NECK: No JVD, no neck masses. HEART: S1 and S2 heard. Regular rate and rhythm. No murmur, no gallop. RESPIRATORY SYSTEM: Normal AP diameter. No accessory muscle use. No wheezing, no crackles. ABDOMEN: Soft, bowel sounds present, nontender, no distention. CENTRAL NERVOUS SYSTEM: No facial droop. Speech is clear. Obeys simple commands. Moves extremities. EXTREMITIES: No edema, no erythema seen. Lower back with clean dressing without soakage. JUAN drain with minimal serosanguineous collection noted. Urinary catheter with light yellow urine collection noted. Results & Data Results & Data Vital Signs (Past 12 Hours) Vital Signs Temp Pulse Pulse Resp BP Pulse Ox O2 Del Method 09/09/23 15:44 36.6 C 89 16 98/62 L 94 Room Air 09/09/23 12:36 97 09/09/23 12:00 37.3 C 110 H 16 118/58 L 98 Room Air 09/09/23 07:52 36.9 C 86 16 118/58 L 98 Room Air
[2023-09-10] MEDS: HYDROmorphone INJ 1 MG/ML SYRINGE IV PRN (09:42)
--- NOTE | 2023-09-10 10:19 | Orthopedic Progress Note ---
Date of Service September 10, 2023 Assessment & Plan (1) Neurogenic claudication due to lumbar spinal stenosis: Plan: At this time continue physical therapy will discontinue her drain and change dressing today. Plan for rehab on Tuesday. Admission and Anticipated Discharge Date Admission Date: September 07, 2023 Subjective Patient's back pain is controlled but she is still limited with ambulation. Bowels are working well. No leg pain. Physical Exam Physical Exam: On exam patient is currently bed. She is neurologic intact. Results & Data Vital Signs (Past 12 Hours) Vital Signs Temp Pulse Resp BP Pulse Ox O2 Del Method 09/10/23 06:42 37.0 C 79 16 116/67 96 Room Air Queries Orthopedic Spine Cauda Equina Syndrome: Yes
--- NOTE | 2023-09-10 16:24 | Hospitalist Progress Note ---
Date of Service September 10, 2023 Assessment & Plan (1) Neurogenic claudication due to lumbar spinal stenosis: (2) Chronic obstructive pulmonary disease: Plan This is a 72 yr old F who has a significant PMH of COPD, depression and chronic back pain who presents to elective lumbar procedure by Dr. Corado. S/P Lumbar decompression and fusion L3-L5 by Dr. Corado 09/07/23. EBL 50ml tolerated procedure well pain/wound management per ortho activity and therapy as prescribed by ortho encourage incentive spirometry and wean off O2 as able Acute blood loss anemia: likely post operative and dilutional related anemia. Preop Hb 12.9; post op 10.5; monitor HnH prn. currently pt stable. COPD no acute exac prn albuterol Depression mood stable, chronic continue Wellbutrin Hx of T2DM most recent a1c 5.5 previously a1c 6.9, required meds and lost 50lbs in setting of surgery and steroid will monitor accuchecks with liberal novolog scale DVT ppx: SCDS FULL CODE PCP: Ani Can PA-C Dispo: per per primary Thank you for this consultation. We will follow the patient with you during their hospital stay. You can reach a member of the [facility] Hospitalist Team 24/01 via hospitalist role on tiger text. Admission and Anticipated Discharge Date Admission Date: September 07, 2023 Subjective Patient was seen and examined at bedside. Patient was lying in bed, on room air, resting comfortably. Patient reports improvement in her low back pain, some improvement in her BLE extremity. Patient denies any febrile illness/headache/dizziness/chest pain. Is moving bowels ok now. Physical Exam Physical Exam: GENERAL: Alert and oriented x3. NAD, on RA. HEENT: No pallor, no icterus. Pupils equal, round and reactive to light. Oral mucosa moist. NECK: No JVD, no neck masses. HEART: S1 and S2 heard. Regular rate and rhythm. No murmur, no gallop. RESPIRATORY SYSTEM: Normal AP diameter. No accessory muscle use. No wheezing, no crackles. ABDOMEN: Soft, bowel sounds present, nontender, no distention. CENTRAL NERVOUS SYSTEM: No facial droop. Speech is clear. Obeys simple commands. Moves extremities. EXTREMITIES: No edema, no erythema seen. Lower back with clean dressing without soakage. JUAN drain with minimal serosanguineous collection noted. Urinary catheter with light yellow urine collection noted. Results & Data Results & Data Vital Signs (Past 12 Hours) Vital Signs Temp Pulse Resp BP Pulse Ox O2 Del Method 09/10/23 15:13 37 C 105 H 18 147/72 H 96 Room Air 09/10/23 06:42 37.0 C 79 16 116/67 96 Room Air
--- NOTE | 2023-09-11 11:10 | Orthopedic Progress Note ---
Date of Service September 11, 2023 Assessment & Plan (1) Neurogenic claudication due to lumbar spinal stenosis: Plan: Patient is improving appropriately. We are hoping for possible rehab placement as soon as Tuesday. Admission and Anticipated Discharge Date Admission Date: September 07, 2023 Subjective Back pain controlled leg pain improved Physical Exam Physical Exam: Patient is in the chair at the bedside. She appears comfortable. She is consented testing. Results & Data Vital Signs (Past 12 Hours) Vital Signs Temp Pulse Resp BP Pulse Ox O2 Del Method 09/11/23 07:54 36.8 C 83 18 107/67 95 Room Air Queries Orthopedic Spine Cauda Equina Syndrome: Yes
--- NOTE | 2023-09-11 16:07 | Hospitalist Progress Note ---
Date of Service September 11, 2023 Assessment & Plan (1) Neurogenic claudication due to lumbar spinal stenosis: (2) Chronic obstructive pulmonary disease: Plan This is a 72 yr old F who has a significant PMH of COPD, depression and chronic back pain who presents to elective lumbar procedure by Dr. Corado. S/P Lumbar decompression and fusion L3-L5 by Dr. Corado 09/07/23. EBL 50ml tolerated procedure well pain/wound management per ortho activity and therapy as prescribed by ortho encourage incentive spirometry and wean off O2 as able Acute blood loss anemia: likely post operative and dilutional related anemia. Preop Hb 12.9; post op 10.5; monitor HnH prn. currently pt stable. COPD no acute exac prn albuterol Depression mood stable, chronic continue Wellbutrin Hx of T2DM most recent a1c 5.5 previously a1c 6.9, required meds and lost 50lbs in setting of surgery and steroid will monitor accuchecks with liberal novolog scale DVT ppx: SCDS FULL CODE PCP: Ani Can PA-C Dispo: per per primary Thank you for this consultation. We will follow the patient with you during their hospital stay. You can reach a member of the [facility] Hospitalist Team 24/01 via hospitalist role on tiger text. Admission and Anticipated Discharge Date Admission Date: September 07, 2023 Subjective Patient was seen and examined at bedside. Patient was lying in bed, on room air, resting comfortably. Patient reports improvement in her low back pain, some improvement in her BLE extremity. Patient denies any febrile illness/headache/dizziness/chest pain. Is moving bowels ok. Physical Exam Physical Exam: GENERAL: Alert and oriented x3. NAD, on RA. HEENT: No pallor, no icterus. Pupils equal, round and reactive to light. Oral mucosa moist. NECK: No JVD, no neck masses. HEART: S1 and S2 heard. Regular rate and rhythm. No murmur, no gallop. RESPIRATORY SYSTEM: Normal AP diameter. No accessory muscle use. No wheezing, no crackles. ABDOMEN: Soft, bowel sounds present, nontender, no distention. CENTRAL NERVOUS SYSTEM: No facial droop. Speech is clear. Obeys simple commands. Moves extremities. EXTREMITIES: No edema, no erythema seen. Lower back with clean dressing without soakage. JUAN drain with minimal serosanguineous collection noted. Urinary catheter with light yellow urine collection noted. Results & Data Results & Data Vital Signs (Past 12 Hours) Vital Signs Temp Pulse Resp BP BP Pulse Ox O2 Del Method 09/11/23 15:58 37 C 93 H 18 115/66 96 Room Air 09/11/23 07:54 36.8 C 83 18 107/67 95 Room Air
[2023-09-11] MEDS: ONDANSETRON 4 MG OD TAB PO PRN (21:05)
--- NOTE | 2023-09-12 12:26 | Orthopedic Progress Note ---
Date of Service September 12, 2023 Assessment & Plan (1) Spinal stenosis, lumbar region with neurogenic claudication: Plan: At this time continue physical therapy anticipate discharge to rehab possibly today. Admission and Anticipated Discharge Date Admission Date: September 07, 2023 Subjective Patient's back pain is controlled leg pain improved Physical Exam Physical Exam: Patient is currently in bed. She is comfortable. Distracted testing. Results & Data Vital Signs (Past 12 Hours) Vital Signs Temp Pulse Resp BP Pulse Ox O2 Del Method 09/12/23 11:39 37.0 C 88 16 120/58 L 96 Room Air 09/12/23 07:41 36.6 C 94 H 14 100/58 L 97 Room Air Queries Orthopedic Spine Cauda Equina Syndrome: Yes
--- NOTE | 2023-09-12 15:44 | Hospitalist Progress Note ---
Date of Service September 12, 2023 Assessment & Plan (1) Neurogenic claudication due to lumbar spinal stenosis: (2) Chronic obstructive pulmonary disease: Plan This is a 72 yr old F who has a significant PMH of COPD, depression and chronic back pain who presents to elective lumbar procedure by Dr. Corado. S/P Lumbar decompression and fusion L3-L5 by Dr. Corado 09/07/23. EBL 50ml tolerated procedure well pain/wound management per ortho activity and therapy as prescribed by ortho encourage incentive spirometry and wean off O2 as able Acute blood loss anemia: likely post operative and dilutional related anemia. Preop Hb 12.9; post op 10.5; monitor HnH prn. currently pt stable. COPD no acute exac prn albuterol Depression mood stable, chronic continue Wellbutrin Hx of T2DM most recent a1c 5.5 previously a1c 6.9, required meds and lost 50lbs in setting of surgery and steroid will monitor accuchecks with liberal novolog scale DVT ppx: SCDS FULL CODE PCP: Ani Can PA-C Dispo: per primary Thank you for this consultation. We will follow the patient with you during their hospital stay. You can reach a member of the [facility] Hospitalist Team 24/01 via hospitalist role on tiger text. Admission and Anticipated Discharge Date Admission Date: September 07, 2023 Subjective Patient was seen and examined at bedside. Patient was lying in bed, on room air, resting comfortably. Patient reports some increase in her operative site pain, but continued improvement in her BLE extremity. Patient denies any febrile illness/headache/dizziness/chest pain. Is moving bowels ok. Physical Exam Physical Exam: GENERAL: Alert and oriented x3. NAD, on RA. HEENT: No pallor, no icterus. Pupils equal, round and reactive to light. Oral mucosa moist. NECK: No JVD, no neck masses. HEART: S1 and S2 heard. Regular rate and rhythm. No murmur, no gallop. RESPIRATORY SYSTEM: Normal AP diameter. No accessory muscle use. No wheezing, no crackles. ABDOMEN: Soft, bowel sounds present, nontender, no distention. CENTRAL NERVOUS SYSTEM: No facial droop. Speech is clear. Obeys simple commands. Moves extremities. EXTREMITIES: No edema, no erythema seen. Lower back with clean dressing without soakage. JUAN drain with minimal serosanguineous collection noted. Urinary catheter with light yellow urine collection noted. Results & Data Results & Data Vital Signs (Past 12 Hours) Vital Signs Temp Pulse Pulse Resp BP BP Pulse Ox 09/12/23 14:39 36.9 C 80 16 108/65 97 09/12/23 11:39 37.0 C 88 16 120/58 L 96 09/12/23 07:41 36.6 C 94 H 14 100/58 L 97 O2 Del Method 09/12/23 14:39 Room Air 09/12/23 11:39 Room Air 09/12/23 07:41 Room Air
--- NOTE | 2023-09-13 13:19 | Hospitalist Progress Note ---
Date of Service September 13, 2023 Assessment & Plan (1) Neurogenic claudication due to lumbar spinal stenosis: (2) Chronic obstructive pulmonary disease: Plan This is a 72 yr old F who has a significant PMH of COPD, depression and chronic back pain who presents to elective lumbar procedure by Dr. Corado. S/P Lumbar decompression and fusion L3-L5 by Dr. Corado 09/07/23. EBL 50ml tolerated procedure well pain/wound management per ortho activity and therapy as prescribed by ortho encourage incentive spirometry and wean off O2 as able Acute blood loss anemia: likely post operative and dilutional related anemia. Preop Hb 12.9; post op 10.5; monitor HnH prn. currently pt stable. COPD no acute exac prn albuterol Depression mood stable, chronic continue Wellbutrin Hx of T2DM most recent a1c 5.5 previously a1c 6.9, required meds and lost 50lbs in setting of surgery and steroid will monitor accuchecks with liberal novolog scale DVT ppx: SCDS FULL CODE PCP: Ani Can PA-C Dispo: per primary Thank you for this consultation. We will follow the patient with you during their hospital stay. You can reach a member of the [facility] Hospitalist Team 24/01 via hospitalist role on tiger text. Admission and Anticipated Discharge Date Admission Date: September 07, 2023 Subjective Patient was seen and examined at bedside. Patient was lying in bed, on room air, resting comfortably. Patient reports some pain in her operative site, but continued improvement in her BLE extremity. Patient denies any febrile illness/headache/dizziness/chest pain. Is moving bowels ok. Physical Exam Physical Exam: GENERAL: Alert and oriented x3. NAD, on RA. HEENT: No pallor, no icterus. Pupils equal, round and reactive to light. Oral mucosa moist. NECK: No JVD, no neck masses. HEART: S1 and S2 heard. Regular rate and rhythm. No murmur, no gallop. RESPIRATORY SYSTEM: Normal AP diameter. No accessory muscle use. No wheezing, no crackles. ABDOMEN: Soft, bowel sounds present, nontender, no distention. CENTRAL NERVOUS SYSTEM: No facial droop. Speech is clear. Obeys simple commands. Moves extremities. EXTREMITIES: No edema, no erythema seen. Lower back with clean dressing without soakage. Urinary catheter with light yellow urine collection noted. Results & Data Results & Data Vital Signs (Past 12 Hours) Vital Signs Temp Pulse Resp BP Pulse Ox O2 Del Method 09/13/23 07:37 36.8 C 70 16 107/63 93 Room Air
[2023-09-14 07:58] VITALS: RESP 16
--- NOTE | 2023-09-14 10:26 | Orthopedic Progress Note ---
Date of Service September 14, 2023 Assessment & Plan (1) Neurogenic claudication due to lumbar spinal stenosis: Plan: Stable for discharge, awaiting insurance auth. Continue physical therapy. Continue pain control Admission and Anticipated Discharge Date Admission Date: September 07, 2023 Subjective Cris is POD 7 s/p PSF L3-5. She has Right buttock pin that is positional. + BM yesterday. Yesterday in physical therapy for was able to ambulate 15-20' x3. Still awaiting authorization for rehab upon discharge Review of Systems Review of Systems: All systems reviewed & are unremarkable except as noted in HPI & below Physical Exam Physical Exam: sitting in a chair in NAD lumbar dressing C/D/I strength unchanged B/L lower extremeties Results & Data Vital Signs (Past 12 Hours) Vital Signs Temp Pulse Resp BP Pulse Ox O2 Del Method 09/14/23 07:57 36.9 C 67 16 105/67 93 Room Air 09/13/23 23:34 37.0 C 81 17 112/63 95 Room Air Queries Orthopedic Spine Cauda Equina Syndrome: Yes
--- NOTE | 2023-09-14 13:17 | Hospitalist Progress Note ---
Date of Service September 14, 2023 Assessment & Plan (1) Neurogenic claudication due to lumbar spinal stenosis: (2) Chronic obstructive pulmonary disease: Plan 72 yr old F who has a significant PMH of COPD, depression and chronic back pain who presents to elective lumbar procedure by Dr. Corado. S/P Lumbar decompression and fusion L3-L5 by Dr. Corado 09/07/23. EBL 50ml Tolerated procedure well Pain/wound management per ortho Activity and therapy as prescribed by ortho Awaiting rehab placement Acute blood loss anemia: Likely post operative and dilutional related anemia. Preop Hb 12.9; post op 10.5 Stable COPD No acute exac Prn albuterol Depression Mood stable, chronic Continue Wellbutrin Hx of T2DM Most recent Hba1c 5.5 Previously a1c 6.9, required meds and lost 50lbs Optimal glycemic control inpatient DVT ppx: SCDS FULL CODE PCP: Ani Can PA-C Dispo: per primary I spent a total of 30 minutes coordinating, documenting and providing care for this patient excluding time spent in performance of separately billed services Admission and Anticipated Discharge Date Admission Date: September 07, 2023 Subjective Patient seen and examined Reports surgical site pain is well controlled Has no other complaints Physical Exam Constitutional: + well hydrated; no acute distress Eyes: PERRL, conjunctivae normal, anicteric sclerae ENMT: external ear and nose normal, oropharynx normal Respiratory: normal respiratory effort, lungs clear to auscultation Cardiovascular: Rate/Rhythm: regular rate and regular rhythm S1 S2 Gastrointestinal (Abdomen): normal bowel sounds, soft, nontender, no hepatosplenomegaly Musculoskeletal: Clean dressing over lower back surgical site Neurologic: PERRL, EOMI, accommodation nl, no face palsy, no dysarthria Psychiatric: A+Ox3, euthymic affect Results & Data Results & Data Vital Signs (Past 12 Hours) Vital Signs Temp Pulse Resp BP Pulse Ox O2 Del Method 09/14/23 07:57 36.9 C 67 16 105/67 93 Room Air Laboratory Results Abnormal lab results 09/13/23 09/14/23 09/14/23 Range/Units 20:05 07:29 11:21 POC Glucose 105 H 108 H 105 H (70-99) mg/dl 09/14/23 Range/Units 16:25 POC Glucose 114 H (70-99) mg/dl
[2023-09-15 07:39] VITALS: BP 107/63; PULSE 70; TEMP 98.1; O2SAT 94
--- NOTE | 2023-09-19 09:57 | Discharge Summary ---
Date of Service September 19, 2023 Admission HPI Per Admitting Provider This is a 72-year-old female who presents with worsening back and leg pain Course of nonoperative care she is here for surgical invention. Admission Exam (Per Admitting) Constitutional WD/WN, vitals as above Eyes normal visual alfonso by confrontation ENMT external ear and nose normal, oropharynx normal Neck normal visual inspection Respiratory normal respiratory effort Cardiovascular Extremities: normal capillary refill Gastrointestinal (Abdomen) Inspection/Auscultation: abdomen normal to inspection Musculoskeletal Spine: + pain with thoraco-lumbar ROM Extremities: extremities normal to inspection Skin no rashes, warm and dry Neurologic normal touch/pain/proprioception and moves all extremities Psychiatric A+Ox3, euthymic affect Eye Contact: good eye contact Discharge Data Consultations 09/07/23 11:13 Consult Hospitalist Routine Procedures Performed Operation Date: 09/07/23 07:45 Actual Procedures p L3-L5 Decompression and Fusion, Spinal Cord Monitoring(Not Applicable) - Pedro Corado DO s L5 Kyphoplasty - Pedro Corado DO Hospital Course (1) Neurogenic claudication due to lumbar spinal stenosis: Cris frausto underwent an L3-5 decompression and fusion with an L5 kyphoplasty by Dr. Corado on September 06. She was subsequently discharged to rehab on September 14. Extended length of hospital stay was due to insurance authorization and bed availability at rehab. She participated in physical therapy daily. Pain was controlled. Lab values were stable. She had an uncomplicated postoperative course. Discharge Instructions ACTIVITY RECOMMENDATIONS: SELF CARE INSTRUCTIONS AFTER THORACIC/LUMBAR FUSIONS 1. You may walk to your tolerance. It is good exercise for your legs and back. Expect some back and intermittent leg aches and pains. 2. You may perform "counter-top" level activities (make a sandwich, teri with a project, etc.). 3. No bending or lifting of more than 10 pounds or back twisting of any nature (roll like a log when turning in bed). 4. You may ride in a car for 20-30 minutes at a time. No driving until after your first visit with your doctor. 5. Frequent changes of position and restricting sitting to 30 minutes at a time will help limit the amount of back spasms and stiffness you may experience. 6. You may discontinue the use of ambulatory aids (cane, crutches, etc.) once your strength and confidence allow. 7. You may skiing instructor the shower and let water strike your incision when you arrive home at least once daily. Do not take a tub bath, sit in a hot tub or go into a swimming pool until after your first recheck in the office. SPECIAL CARE INSTRUCTIONS: VERY IMPORTANT TO READ AND REVIEW A. Your surgical incision has been closed with a cosmetic suture under the skin that will dissolve in about 6 weeks. In 14 days, you can use a pair of clean scissors and cut the suture that is left outside of the skin at the ends of your incision. 1. The small skin tapes can be removed 7 days after surgery if they have not fallen off by that point. 2. You may keep the wound open to air as much as possible to promote healing after post-op day number 5 unless told otherwise by your doctor. 3. If you think the wound looks like it is becoming infected (redness or worsening drainage) and/or you are experiencing fever, chill or worsening back pain and muscle spasms, contact the office so that we may evaluate you as soon as possible. B. Complications are uncommon, but please contact us if you have any signs or symptoms of: 1. wound infection (fever higher than 102.5 degrees F, redness, separation of wound, drainage, or increasing pain from the incision) 2. blood clots in legs (pain, swelling, redness and warmth in legs) 3. urinary tract infection (fever higher than 102.5 degrees F, burning upon urination or increased frequency of urination) 4. nerve problems (inability to walk on your toes or heels, numbness, loss of bowel or bladder control) 5. any other symptoms that concern you C. Please call the office at if you have any concerns or questions about your operation or recovery. D. No smoking! Smoking drastically decreases the chance of a solid fusion. E. Do not take any anti-inflammatory medications (Indocin, Advil, Motrin, Aspirin, Naprosyn, etc.) as these may inhibit the chance of a solid fusion. Tylenol is okay to take for pain. MANAGING PAIN AFTER SPINAL SURGERY 1. Narcotic medication is intended for short-term use and will be provided for surgical pain. Surgical pain usually lasts for a period of 4-6 weeks. Narcotic medication includes Percocet, Vicodin, Darvocet, Tylenol #3 or Lortab. 2. Longer-term pain is more appropriately treated with non-narcotic medication such as Tylenol ES. 3. Muscle spasm is not appropriately treated with narcotics. Muscle relaxers such as Soma, Flexeril or Skelaxin can be used along with Tylenol ES. 4. Remember that we all live with some "aches and pains". This is not unusual or uncommon after an injury or as we get older. a. Back pain is expected and may include muscle spasms for 4 to 6 weeks after surgery. The pain should gradually improve. If the pain worsens for no apparent reason, please contact the office. b. Intermittent leg pain may also be experienced and should not be concerned about unless it worsens for no apparent reason. If so, please contact the office. 5. We will provide appropriate medication within the normal guidelines of their prescribed use. We will also be very cautious and aware of potential abuse and extended duration of patients' medication needs. a. Pain medications are for your comfort and to assist with sleep and rest so that the tissue can heal. They are not provided in order to return to normal activity and should not be used through the day. To do so or worsening pain at night can result from ongoing tissue damage and development of tolerance to the prescribed medicine. 6. Please allow 2-3 days to process refills. Prescriptions will not be mailed but must be picked up at the office. FOLLOW UP VISIT: Keep your scheduled follow-up appointment. Any questions, please call the office at .
== END 2023-09-15 11:21 | DRG 454 ==
LOC: ASU 06:14 → 3E 10:12